=== PATIENT | female | born 1980 | race Caucasian/White ===

== ENCOUNTER 2017-11-08 05:34 | Day surgery (SDC) | payer OTHER ==
[~2017-11-08] VITALS: Ht 157.5 cm; Wt 53.5 kg
[2017-11-08] MEDS ORDERED: DESFLURANE 240 ML BTL INH ONE (07:25)
[2017-11-08] MEDS ORDERED: DEXAMETHASONE 4 MG/ML VIAL IVP ONE (07:25)
[2017-11-08] MEDS ORDERED: SUCCINYLCHOLINE CHLORIDE 200 MG/10 ML VIAL IV ONE (07:25)
[2017-11-08] MEDS ORDERED: ROCURONIUM 50 MG/5 ML VIAL IV ONE (07:25)
[2017-11-08] MEDS ORDERED: GLYCOPYRROLATE 0.2 MG/ML VIAL IV ONE (07:25)
[2017-11-08] MEDS ORDERED: NEOSTIGMINE 1:1000 10 MG/10 ML VIAL IM ONE (07:25)
[2017-11-08] MEDS ORDERED: ONDANSETRON 4 MG/2 ML VIAL IVP ONE (07:25)
[2017-11-08] MEDS ORDERED: PROPOFOL 200 MG/20 ML VIAL IV ONE (07:25)
[2017-11-08] MEDS ORDERED: MIDAZOLAM 2 MG/2 ML VIAL ONE (07:36)
[2017-11-08] MEDS ORDERED: MORPHINE SULFATE 4 MG/ML SYR ONE ×2 (07:36→09:01)
[2017-11-08] MEDS ORDERED: fentaNYL 0.05 MG/ML VIAL ONE (07:36)
[2017-11-08] MEDS ORDERED: BUPIVACAINE-MPF 0.25% 30 ML VIAL INJ ONE (07:37)
[2017-11-08] MEDS ORDERED: ACETAMINOPHEN/CODEINE 300/30MG 1 TAB PO PRN (07:45)
[2017-11-08] MEDS ORDERED: MORPHINE SULFATE 4 MG/ML SYR IM/IVP PRN (07:45)
[2017-11-08] MEDS ORDERED: IBUPROFEN 800 MG TAB PO PRN (07:45)
[2017-11-08] MEDS ORDERED: ONDANSETRON 4 MG/2 ML VIAL IVP PRN (07:45)
[2017-11-08] MEDS ORDERED: MIDAZOLAM 2 MG/2 ML VIAL IV ONE (08:15)
[2017-11-08] MEDS ORDERED: MORPHINE SULFATE 4 MG/ML SYR IVP PRN ×3 (08:15)
== END 2017-11-08 10:55 | disposition home or self-care (01) ==
LOC: MDS 05:34 → MMU 05:59 → MDS 10:55
PROVIDERS: ATTEND Obstetrics & Gynecology
DX: N80.9 Endometriosis, unspecified (principal); Z98.890 Other specified postprocedural states; Z79.899 Other long term (current) drug therapy
CPT/HCPCS: 58662; 64999; 82374; J0330; J0690; J1100; J2250; J2270; J2405; J2704; J2710; J3010; J3490; J7060; J7120